=== PATIENT | female | born 1955 | race Two or more races ===

== ENCOUNTER 2021-11-27 14:34 | Emergency (ER) | payer OTHER ==
[~2021-11-27] VITALS: Ht 152.4 cm; Wt 86.2 kg
[2021-11-27 16:06] LABS: Basophils # (auto) 0.1 10 ^3/uL (0-0.2); Basophils % (auto) 0.9 % (0.0-2.0); Eosinophils # (auto) 0.2 10 ^3/uL (0-0.8); Eosinophils % (auto) 2.4 % (0.0-7.0); Hematocrit 38.3 % (36.0-46.0); Hemoglobin 13.2 g/dL (12.2-16.2); Lymphocytes # (auto) 2.1 10 ^3/uL (0.4-5.4); Mean Corpuscular Hemoglobin 31.7 pg (28.0-32.0); Mean Corpuscular Hgb Conc. 34.6 g/dL (32.0-36.0); Mean Corpuscular Volume 91.8 fL (80.0-100.0); Monocytes # (auto) 0.4 10 ^3/uL (0-1.3); Neutrophils # (auto) 5.7 10 ^3/uL (1.6-8.6); Neutrophils % (auto) 66.7 % (37.0-80.0); Nucleated Red Blood Cells % 0.1 %; Red Blood Cells 4.17 10^6/uL (4.0-5.20); Red Cell Distribution Width 12.9 % (11.8-14.3); White Blood Cell 8.5 10^3/uL (4.4-10.8)
[2021-11-27 16:23] LABS: Potassium 3.7 mmol/L (3.5-5.1)
[2021-11-27 16:32] LABS: Albumin 3.8 g/dL (3.4-5.0); BUN/Creatinine Ratio 19.2; Bilirubin, Total 0.4 mg/dL (0.2-1.0); Calcium 8.5 mg/dL (8.5-10.1); Total Protein 7.4 g/dL (6.4-8.2)
[2021-11-27 19:58] VITALS: BP 159/67
== END 2021-11-27 20:03 | disposition home or self-care (01) ==
LOC: ER 14:34
DX: R07.9 Chest pain, unspecified (principal); E78.5 Hyperlipidemia, unspecified
CPT/HCPCS: 36415; 71046; 80053; 84484; 85025; 93005

== ENCOUNTER 2024-06-12 16:44 | Emergency (ER) | payer OTHER ==
[~2024-06-12] VITALS: Ht 152.4 cm; Wt 90.9 kg
[2024-06-12 18:01] VITALS: PULSE 113; RESP 18; O2SAT 97
[2024-06-12] MEDS: SODIUM CHLORIDE 0.9% 1,000 ML IV ONE ×2 (18:11→19:30)
--- NOTE | 2024-06-12 18:14 | ED.PDOC ---
Sepsis Screening Sepsis Initial Screening Date: Jun 12, 2024 Time of Initial Screenin Temp<36 C (96.8 F) or >38.3 C: Yes (102.1) Respiratory Rate >20: No Heart Rate >90: Yes (128) SBP <90 or MAP <65 mmHG: No New Acute Mental Status Change: No Is the patient on CPAP, BIPAP,: No History of Present Illness HPI Comments HPI: Poor Historian. 68-year-old female brought in by her daughter for evaluation of generalized body aches and fever that started yesterday. Patient was diagnosed with dengue fever three weeks ago in [place] and was hospitalized for three days and was discharged home with some [place] medication for fever and pain and also alprazolam. The daughter states that the patient has showed some mild improvement but continued to have persistent generalized weakness. Patient symptoms got worse last night. Patient complained of some generalized body aches and nonspecific headache and bilateral feet pain. She is in extremely poor historian unable to exactly state her main concern and complaint today. Patient was found with fever on arrival and was tachycardic. Sepsis protocol was initiated. Past Medcial History: Hypertension, hyperlipidemia, anxiety, patient on baby aspirin., hypothyroidism Past Surgical History: Cholecystectomy REVIEW OF SYSTEMS: CONSTITUTIONAL: Denies acute: diaphoresis, HEAD: Denies acute: photophobia Eyes: Denies acute: Double vision, vision loss, eye pain, eye discharge. EARS: Denies acute: tinnitus, hearing loss, ear discharge, ear pain, THROAT: Denies acute: sore throat, swelling, difficulty swallowing , pain with swallowing, change in voice. NECK: Denies acute: neck pain, neck swelling, stiff neck. HEART: Denies acute : chest pain, palpitations, LUNGS: Denies acute: SOB, wheezing, cough, hemoptysis ABDOMEN: Denies acute: abdominal pain, Nausea, Vomiting, diarrhea, melena , hematemesis, hematochezia SKIN: Denies acute: rash, redness, lesions, itchiness. EXTREMITIES: Denies acute: calf pain, numbness, tingling, weakness, Denies acute: Low back pain. Neuro: Denies acute: focal neurological deficit, motor or sensory focal neurological deficit, tremors, seizure like activity, confusion, dizziness, change in mental status, loss of bowel or bladder function, cauda equina like symptoms. : Denies acute: dysuria, hematuria, flank pain, increase in urinary frequency. PSYCH: Denies acute: hallucination, suicidal ideation, homicidal ideation. FEMALE: Denies acute: abnormal vaginal bleeding, foul odor, unusual discharge. PHYSICAL EXAM: General: mild to moderate acute distress, awake and alert. Head: normocephalic, atraumatic. Neck: supple, trachea is midline, no swelling. Throat: Normal phonation. Eyes:, no erythema, no purulent discharge, no proptosis, no icterus. Heart: regular tachycardia in the setting of a fever, no significant murmur appreciated. Lungs: no apparent respiratory distress, . No wheezing, no rhonchi, no crackles. No stridors Clear to auscultation bilaterally. Abdomen: non tender to palpation, non distended, soft, no guarding, no rebound, + bowel sounds. Neuro: Awake, Alert, oriented to name, self, situation, follows commands GCS=15. Speech is normal. Skin: no petechia, no purpura, no cyanosis, non-pale, not jaundice. Lower extremities: --trace bilateral - Pitting edema no deformity, no focal swelling, no calf TTP. Makes eye contact. moves all four extremities. Face: no apparent facial droop. No nuchal rigidity, Kernig's sign, Brudzinski's sign, no meningeal signs. ED course: At 9:20 p.m. The case was discussed with the admitting team (HPI, physical exam, labs and diagnostic tests that were available at the time of disposition, ED course, treatment plan) on the phone. I advised and recommended to admit the patient to the hospital. Dr. Gold will assume care of this patient. It seems like she wants to discharge the patient with close follow up. Please see her disposition instructions and consultation notes. At 11:00 p.m. I reassessed the patient and she feels and looks much better than earlier. Her vital signs are stable. No nuchal rigidity or photophobia or neck pain. Chief Complaint: Headache Time Seen by MD: 17:58 Primary Care Provider: Unknown Reviewed Notes: Nurses Notes, Medications, Allergies Allergies: Coded Allergies: NO KNOWN ALLERGIES (Unverified , 11/27/21) Home Meds Active Scripts Ciprofloxacin Hcl (Cipro) 500 Mg Tab, 500 MG PO BID for 7 Days, #14 TAB Prov:GWEN GOLD MD 06/13/24 Information Source: Patient, Relative (Daughter) Mode of Arrival: Wheelchair Past Medical History PAST MEDICAL HISTORY: High Lipids Surgical History: Denies all surgeries RING SEWER History: No Pertinent RING SEWER History Family History Family History: Reviewed,noncontributory to illness, No family hx of Cancer, No family hx of DM, No family hx of Heart desirae, No family hx of HTN, No family hx ofKidney desirae, No family hx of Liver desirae, No family hx of Lung desirae, No family hx of Stroke Social History Smoker: Non-Smoker Alcohol: Denies ETOH Use Drugs: Denies Drug Use Was a procedure done? Was a procedure done?: No Differential Dx Considerations may include: Includes but not limited to thyroid disease, encephalopathy, electrolyte abnormality, sepsis, infection, intracranial pathology, drug adverse effects, arrhythmia, kidney insufficiency, ACS, CVA, malignancy, anemia Sepsis Reasses After Fluid-ER Patient Education/Counseling: Diagnosis, Treatment Family Education/Counseling: Diagnosis, Treatment Comments Patient presented with the above HPI.-fever/sepsis-----workup was initiated. patient was found with the above mentioned diagnosis. Patient was given: Patient was given fluids 2L normal saline boluses, Rocephin, hydrocodone, Tylenol Patient ED course and VS have been stabilized. Patient has been reassessed in the ED and remained in a stable condition. Pertinent incidental findings were discussed with the patient and/or family. Patient/family voices understanding and is agreeable with plan. Patient has been observed in the ED adequate length of time to insure improvement/stability. patient was admitted to the medicine team for further evaluation and treatment of their presentation. All the reports of any imaging studies that were ordered by myself were reviewed by myself. Departure 1 Departure Time of Disposition: 18:43 Impression: Primary Impression: Sepsis Additional Impression: Myalgia Disposition: ADMITTED INPATIENT Admit to: Tele Condition: Guarded e-Prescriptions Ciprofloxacin Hcl (Cipro) 500 Mg Tab 500 MG PO BID for 7 Days, #14 TAB Prov: GWEN GOLD MD 06/13/24 Discharged With: Self Critical Care Note Critical Care Time?: Yes (35 min-critical care time only) PAKO GALAN DO Jun 12, 2024 18:13
[2024-06-12] MEDS: HYDROcodone-ACET 5/325MG TAB PO ONE (18:25)
[2024-06-12] MEDS: ACETAMINOPHEN 325 MG TAB PO ONE (18:26)
[2024-06-12 18:29] LABS: Urine Bacteria None Seen /hpf (None Seen)
[2024-06-12 18:44] LABS: Basophils # (auto) 0 10 ^3/uL (0-0.2); Basophils % (auto) 0.3 % (0.0-2.0); Eosinophils # (auto) 0.1 10 ^3/uL (0-0.8); Eosinophils % (auto) 0.5 % (0.0-7.0); Hematocrit 38.9 % (36.0-46.0); Lymphocytes # (auto) 0.8 10 ^3/uL (0.4-5.4); Lymphocytes % (auto) 4.7 % (10.0-50.0); Mean Corpuscular Hemoglobin 30.7 pg (28.0-32.0); Mean Corpuscular Hgb Conc. 33.4 g/dL (32.0-36.0); Monocytes # (auto) 0.5 10 ^3/uL (0-1.3); Monocytes % (auto) 2.9 % (0.0-12.0); Neutrophils # (auto) 14.9 10 ^3/uL (1.6-8.6); Neutrophils % (auto) 91.6 % (37.0-80.0); Nucleated Red Blood Cells % 0.1 %; Platelet Count (auto) 195 10^3/uL (140-450); Red Blood Cells 4.23 10^6/uL (4.0-5.20); Red Cell Distribution Width 14.3 % (11.8-14.3); White Blood Cell 16.2 10^3/uL (4.4-10.8)
[2024-06-12] MEDS: cefTRIAXone 1GM/50ML D5W 50 ML IV ONE (18:45)
[2024-06-12 18:52] LABS: Urine Blood 1+ /uL (Negative); Urine Clarity Clear (Clear); Urine Color Light-Yellow (Yellow); Urine Protein, UAD 1+ (Negative); Urine Specific Gravity 1.009 (1.001-1.035); Urine Squamous Epithelial Cell FEW /hpf (<5); Urine Urobilinogen Normal (Negative); Urine WBC 76 /hpf (0 - 5)
--- NOTE | 2024-06-12 18:54 | DVH ---
CHEST RADIOGRAPH Indication:fever Technique: Single frontal view of the chest was obtained Comparison: None FINDINGS: Lines and Tubes: None Lungs: No focal consolidation. Mild elevation of the right hemidiaphragm. Pleura: No effusion. No pneumothorax. Cardiomediastinal contours: Unremarkable Bones: No acute osseous abnormality. IMPRESSION: No acute cardiopulmonary disease.
[2024-06-12 19:01] LABS: Alanine Aminotransferase 17 U/L (7-40); Albumin 4.5 g/dL (3.2-4.8); Alkaline Phosphatase 123 U/L (46-116); Anion Gap 10 (5-15); Aspartate Aminotransferase 16 U/L (13-40); BUN/Creatinine Ratio 11.1 (10.0-20.0); Blood Urea Nitrogen 11 mg/dL (9-23); Calcium 9.6 mg/dL (8.7-10.4); Carbon Dioxide 23 mmol/L (20-31); Chloride 106 mmol/L (98-107); Creatine Kinase IFCC 50 U/L (34-145); Glucose 111 mg/dL (74-106); Magnesium 1.8 mg/dL (1.6-2.6); Potassium 4.1 mmol/L (3.5-5.1); Sodium 139 mmol/L (136-145)
[2024-06-12 19:02] LABS: Bilirubin, Total 1.2 mg/dL (0.2-1.0); Total Protein 7.4 g/dL (5.7-8.2)
[2024-06-12 19:11] LABS: CRP High Sensitivity 8.72 mg/dL (<1.0)
[2024-06-12 19:15] VITALS: PULSE 93; RESP 18; O2SAT 97
[2024-06-12 19:18] LABS: Lactic Acid w/Reflex 2.9 mmol/L (0.4-2.0)
--- NOTE | 2024-06-12 19:31 | DVH ---
EXAM: CT HEAD WITHOUT CONTRAST INDICATION: headache TECHNIQUE: CT of the head without intravenous contrast. Radiation Dose Information: CT Dose: CTDI volume is 57.2 6 mGy. Dose-length product is 889.93 mGy*cm The dose indicators for CT are the volume Computed Tomography (CT) Dose Index (CTDIvol) and the Dose Length Product (DLP), and are measured in units of mGy and mGy-cm, respectively. These indicators are not patient dose, but values generated from the CT scanner acquisition factors. The report includes radiation exposure data for exposures received during this examination. COMPARISON: None FINDINGS: There is no evidence of acute intracranial hemorrhage, extra-axial collection, mass effect, midline s hift, herniation or hydrocephalus. The ventricles, sulci and cisterns are age appropriate. The medel-white differentiation is intact. Patchy periventricular and subcortical white matter hypoattenuation is nonspecific but may be related to small vessel ischemic disease. The visualized paranasal sinuses and mastoid air cells are clear. The surrounding soft tissues and osseous structures are unremarkable. IMPRESSION: 1. No acute intracranial hemorrhage. 2. No CT findings of intracranial mass. 3. No CT findings of paranasal sinus disease
[2024-06-12 20:02] LABS: COVID19 ANTIGEN SOFIA FIA NEGATIVE (NEGATIVE); Rapid Influenza A Negative (Negative); Rapid Influenza B Negative (Negative)
[2024-06-12] MEDS: SODIUM CHLORIDE 0.9% 2,000 ML IV ONE (21:46)
[2024-06-13] MEDS: ONDANSETRON HCL 4 MG/2 ML VIAL IM ONE (00:19)
[2024-06-13] MEDS: SODIUM CHLORIDE 0.9% 2,000 ML IV ONE (00:20)
[2024-06-13 01:00] VITALS: BP 138/66; PULSE 104; RESP 22; TEMP 98.6; O2SAT 99
--- NOTE | 2024-06-13 07:42 | DVHDS2 ---
Physician Discharge Progress N Final Diagnosis: Dengue fever Operations or Procedures: Operations or Procedures none Other Interventions Other Interventions Labs, CXR, CT head, EKG Consultations: Consultations none Commentary: Commentary 68 y.o. female with HTN, obesity, anxiety, h/o cholecystectomy was brought in by her daughter c/o fever and generalized body aches. Patient was diagnosed with dengue fever three weeks ago in [place], hospitalized for three days and discharged home with medication for fever, pain and alprazolam for anxiety. Per family, patient initially improved but her symptoms worsened last night. In the ED she had elevated WBC at 16, elevated CRP negative influenza and covid test results. CXR and CT of the head had no acute findings. UA was negative for UTI. Blood cultures were collected. Patient's fever and tachycardia improved after 3 boluses of NS. Her BP and O2 sat remained stable. Patient was discharged to f/u with ID and rheumatology outpatient. Patient verbalized understanding and agreement Condition on Discharge: Stable Disposition: Home SNF Discharge Will this Physician continue t: No Discharge Instructions: Diet: Consistent carbohydrate Activity: No Restrictions, As Tolerated Follow Up/Referral: [facility] will schedule ID and rheumatology consult Medications: continue home medications, avoid NSAIDs Follow Up Care: Discharge Statement: "Patient was advised to return to the ER or call 911 if any headaches, dizziness, shortness of breath, chest pain, abdominal pain, bleeding, fevers, or worsening of medical condition. Patient was counseled about treatment plan, medications, possible side effects, patientverbalized understanding. All questions were answered to the best of my ability. This discharge took greater then 30 minutes in planning, reviewing documentation, counseling the patient, and discussing with other team members." GWEN GOLD MD Jun 13, 2024 07:42
[2024-06-13] MEDS ORDERED: CIPR-173 PO (19:13)
== END 2024-06-13 02:59 | disposition home or self-care (01) ==
LOC: ER 16:44
DX: A41.9 Sepsis, unspecified organism (principal); R51.9 Headache, unspecified; E78.5 Hyperlipidemia, unspecified; Z20.822 Contact with and (suspected) exposure to COVID-19; Z79.899 Other long term (current) drug therapy
CPT/HCPCS: 36415; 70450; 71045; 80053; 81001; 82550; 83605; 83735; 84484; 85025; 86141; 86308; 87040; 87077; 87186; 87426; 87804; 96361; 96365; 96372; 99285; J0696; J2405; J7030